=== PATIENT | male | born 1945 | race Caucasian/White ===

== ENCOUNTER 2017-04-13 15:16 | Outpatient (CLI) | payer MEDICARE ==
--- NOTE | 2017-04-14 22:05 | Ultrasound Report ---
EXAM: BILATERAL LOWER EXTREMITY ARTERIAL DOPPLER ULTRASOUNd EXAM DATE: 04/13/2017 05:28 p.m. CLINICAL HISTORY: Type 2 diabetes. COMPARISON: None. TECHNIQUE: Real-time sonographic vascular imaging was performed by the social service technician, utilizing color-f low, Doppler flow, and spectral analysis. Multiple computer help desk representative static images were saved for review . FINDINGS: Right leg: Waveforms are variable. There is no evidence of a focal velocity increase to suggest a hem odynamically significant arterial stenosis. Left leg: Waveforms are predominantly biphasic. There is no evidence of a focal velocity increase to suggest a hemodynamically significant arterial stenosis. RIGHT LEG: MEMORY CARE PROGRAM RESIDENT: PSV 156 cm/sec. Triphasic Waveform. PSFA: PSV 85 cm/sec. Triphasic waveform. MSFA: PSV 81 cm/sec. Triphasic Waveform. DSFA: PSV 83 cm/sec. Biphasic Waveform. PFA: PSV 54 cm/sec. Biphasic Waveform. POP: PSV 54 cm/sec. Biphasic Waveform. MAGNUS: PSV 53 cm/sec. Biphasic Waveform. SILO MAN: PSV 15 cm/sec. Monophasic Waveform. PER: PSV 34 cm/sec. Biphasic Waveform. DPA: PSV 98 cm/sec. Triphasic Waveform. LEFT LEG: MEMORY CARE PROGRAM RESIDENT: PSV 148 cm/sec. Triphasic Waveform. PSFA: PSV 90 cm/sec. Biphasic Waveform. MSFA: PSV 94 cm/sec. Biphasic Waveform. DSFA: PSV 71 cm/sec. Biphasic Waveform. PFA: PSV 76 cm/sec. Biphasic Waveform. POP: PSV 58 cm/sec. Biphasic Waveform. MAGNUS: PSV 59 cm/sec. Biphasic Waveform. SILO MAN: PSV 60 cm/sec. Biphasic waveform. PER: PSV 58 cm/sec. Biphasic Waveform. DPA: PSV 25 cm/sec. Biphasic Waveform. IMPRESSION: No evidence of a focal hemodynamically significant arterial stenosis in either leg. [facility] Referring Provider Line: [phone] SITE ID: [id number]
== END 2017-04-13 15:17 | disposition home or self-care (01) ==
LOC: DI 15:16
PROVIDERS: ATTEND Podiatrist
DX: E11.51 Type 2 diabetes mellitus with diabetic peripheral angiopathy without gangrene (principal)
CPT/HCPCS: 93925

== ENCOUNTER 2019-03-25 12:15 | Outpatient (CLI) | payer MEDICARE ==
[2019-03-25 12:59] LABS: ALBUMIN 3.7 g/dL (3.2-5.5); ALBUMIN/GLOBULIN RATIO 1.4 (1.0-2.2); ALKALINE PHOSPHATASE 66 IU/L (42-121); ALT ALANINE AMINOTRANSFERASE 30 IU/L (10-60); AST ASPARTATE AMINOTRANSFERASE 19 IU/L (10-42); BILIRUBIN,TOTAL 0.7 mg/dL (0.2-1.0); BUN - BLOOD UREA NITROGEN 16 mg/dL (6-20); CALCIUM 8.9 mg/dL (8.5-10.3); CARBON DIOXIDE - CO2 25 mmol/L (21-32); CHLORIDE 107 mmol/L (101-111); CHOL/HDL RATIO 2.5 (<5.0); CHOLESTEROL 116 mg/dL; CREATININE 0.8 mg/dL (0.6-1.2); GFR - MDRD 95 (>89); GLUCOSE 141 mg/dL (70-100); HDL CHOLESTEROL 47 mg/dL; LDL CHOLESTEROL,CALCULATED 50 mg/dL; LDL/HDL RATIO 1.1 (<3.6); SODIUM 141 mmol/L (135-145); TOTAL PROTEIN 6.3 g/dL (6.7-8.2); VLDL CHOLESTEROL 19 mg/dL
[2019-03-25 13:03] LABS: HB2 TOTAL 13.9 g/dL; HEMOGLOBIN A1C 0.83 g/dL; HEMOGLOBIN A1C % 7.6 % (4.6-6.2)
[2019-03-25 13:25] LABS: CREATININE,URINE 39.9 mg/dL
[2019-03-25 13:26] LABS: MICROALBUMIN,URINE < 0.2 mg/dL (0-300.0)
[2019-03-25 13:55] LABS: PSA TOTAL 0.007 ng/mL (0.000-2.000)
== END 2019-03-25 12:16 | disposition home or self-care (01) ==
LOC: LAB 12:15
PROVIDERS: ATTEND Family Medicine
DX: E11.9 Type 2 diabetes mellitus without complications (principal); Z85.46 Personal history of malignant neoplasm of prostate; E78.2 Mixed hyperlipidemia
CPT/HCPCS: 36415; 80053; 80061; 82043; 82570; 83036; 83721; 84153

== ENCOUNTER 2020-03-04 06:29 | Day surgery (SDC) | payer MEDICARE ==
[2020-03-04] MEDS ORDERED: fentaNYL 250 MCG/5 ML VIAL IVP ONE (06:30)
[2020-03-04] MEDS ORDERED: MIDAZOLAM 2 MG/2 ML VIAL IVP ONE (06:30)
[2020-03-04] MEDS ORDERED: LACTATED RINGERS 1,000 ML IV ONE (06:43)
[2020-03-04 09:07] VITALS: BP 159/76
== END 2020-03-04 06:30 | disposition home or self-care (01) ==
LOC: SDS 06:29
PROVIDERS: ATTEND Surgery
PROC: 0DBN8ZX Excision of Sigmoid Colon, Via Natural or Artificial Opening Endoscopic, Diagnostic (ICD-10-PCS; principal; 2020-03-04 07:30)
DX: Z86.010 Personal history of colon polyps (principal); K63.5 Polyp of colon; K57.30 Diverticulosis of large intestine without perforation or abscess without bleeding; Q43.8 Other specified congenital malformations of intestine; E11.9 Type 2 diabetes mellitus without complications; Z79.84 Long term (current) use of oral hypoglycemic drugs; Z87.891 Personal history of nicotine dependence
CPT/HCPCS: 45380; J7120

== ENCOUNTER 2020-03-27 14:16 | Outpatient (CLI) | payer MEDICARE ==
--- NOTE | 2020-03-27 18:32 | Ultrasound Report ---
PROCEDURE: Aorta Screening INDICATIONS: CARDIOVASCULAR DISORDERS TECHNIQUE: Real time scanning was performed of the aorta and iliac arteries, with image documentatio n. COMPARISON: None available FINDINGS: Aorta: Proximal aortic diameter measures 2.5 x 2.3 cm. Mid-aorta measures 1.8 x 1.7 cm. Distal aor tic diameter is 1.4 x 1.3 cm. Iliac arteries: Right common iliac artery measures 1.2 x 1.2 cm. Left common iliac artery measures 1.1 x 1.2 cm. IMPRESSION: Negative for aneurysm. Reviewed by: Farhat Pedro MD on 03/27/2020 5:31 PM [place] Approved by: Farhat Pedro MD on 03/27/2020 5:31 PM [place] Station ID: [id number]
== END 2020-03-27 14:17 | disposition home or self-care (01) ==
LOC: DI 14:16
PROVIDERS: ATTEND Family Medicine
DX: Z13.6 Encounter for screening for cardiovascular disorders (principal)
CPT/HCPCS: 76706

== ENCOUNTER 2021-10-17 18:32 | Outpatient (CLI) | payer MEDICARE ==
[2021-10-17 20:25] LABS: ESTIMATED AVERAGE GLUCOSE 140 mg/dL (70-100); HEMOGLOBIN A1c% 6.5 % (4.27-6.07)
== END 2021-10-17 18:33 | disposition home or self-care (01) ==
LOC: LAB.S 18:32
PROVIDERS: ATTEND Family Medicine
DX: E11.9 Type 2 diabetes mellitus without complications (principal)
CPT/HCPCS: 36415; 83036

== ENCOUNTER 2023-08-31 12:52 | Outpatient (CLI) | payer MEDICARE ==
--- NOTE | 2023-08-31 13:29 | Sleep Patient Instructions ---
Sleep Center Visit Summary - Patient Visit Information Reason for Visit: Initial consult for evaluation of sleep disordered breathing and other sleep issues. - Patient Instructions Instructions Attached: Sleep Study Additional Instructions: You will be completing a sleep study, either an in-lab polysomnography (PSG) or home sleep study (HST). You will follow-up in the sleep care office after the sleep study is completed to hear the results and talk about therapy, if needed. You will be called by our office staff to schedule this appointment, but you may contact us with any questions. - Clinic Information Contact: [facility] [address] [place] [address] [email or web address] T: [phone]
--- NOTE | 2023-08-31 13:32 | SLEEP CARE CONSULTATION ---
Information from patient questionnaire entered by Rhoda Machado. I have reviewed and concur with the information entered by Rhoda Machado. This document represents the service I personally performed and the decisions made by me, Cee Ceja ARNP. History of Present Illness Service Date and Time: 08/31/2023 1252 Reason for Visit: New patient Chief Complaint: reports: Insomnia, Unrefreshed sleep, Excessive daytime sleepiness, Frequent awakenings at night Date of Onset: 2YRS Usual bedtime: 11PM Time it takes to fall asleep: 10MIN Snores at night: Yes Observed to quit breathing while asleep: No Sleeps alone due to snoring: Yes Number of times waking at night: 2-3 Reasons for waking at night: reports: Snoring, Bathroom, Other (UNKNOWN). denies: Choking, Gasping for air Toss, Turn, or Twitch while sleeping: No Recalls having dreams: No Usually gets out of bed at: 5-6AM Feels refreshed in the morning: No Morning headache: No Sleepy or fatigued during the day: Yes Ever fallen asleep while driving: Yes (occasionl drowsy driving) Takes day naps: Yes (1 time a month for intentional naps) Dreams during day naps: No Prior sleep studies: No Additional HPI information: I had the pleasure of seeing YG MARIA today regarding the possibility of him having a sleep disorder. His current complaints are unrefreshed sleep, excessive daytime sleepiness and frequent night awakenings. She says a significant other told him that he is breathing abnormally and waking up frequently. She has not described it as snoring and has not said he stopped breathing. Sleeping on his right side helps him to sleep more quietly. She has said he "breathes loudly" when he is on his back. He has had times that he is falling asleep at odd times, like with watching TV. He has had drowsy driving and fallen asleep in car waiting for [place]. He is currently taking THC at night that seems to help him sleep better at night. He has less issues with falling asleep in afternoon or evening. He goes to sleep quickly initially but if he wakes up during the night can be up for 30 minutes to 2 hours. - Parasomnia Symptoms Ever been unable to move upon waking from sleep: No Walks in sleep: No Talks in sleep: No Ever acted out dreams in sleep: No Ever felt weak in the knees when startled or emotional: No Bothered by creepy, crawly, restless sensations in legs: No Problems with memory or concentration: No Subjective Initial [place] Sleepiness Scale score: 19 (08/29/23) Past Medical History Past Medical History: reports: Hypertension, Diabetes, Coronary Heart Disease (1 stent in 2015 right coronary), Insulin resistance, Impotence, GERD, Other (IDEOMOTOR RHINITIS) Social History The patient's occupation is a RE. Patient is and lives in . Have you smoked in the past 12 months: No Cigarettes per day (20/pack): 40 Years of smokin Quit date: 1985 Smoking Pack Years: 40.0 Alcohol use: Yes Alcohol amount and frequency: 2 GLASSES WINE 4 X WEEK Caffeine use: Yes Caffeine amount and frequency: 1 LITER COFFEE DAILY MOSTLY AM Family History Family history of sleep disordered breathing: No Allergies and Home Medications Known drug allergies: No Drug allergies reviewed: Yes Home medication list reviewed: Yes Allergy and home medication list: Allergies No Known Drug Allergies Allergy (Verified 08/29/23 11:41) Home Medications Medication Instructions Recorded Confirmed Last Taken Type Atorvastatin [Lipitor] 40 mg PO DAILY 08/10/14 03/04/20 03/03/20 History Fluticasone [Flonase] 2 sprays CLAUDINE BID 08/10/14 03/04/20 03/03/20 History Metformin HCl 1,000 mg PO BID 08/10/14 03/04/20 03/03/20 History Omeprazole 20 mg PO DAILY 08/10/14 03/04/20 03/03/20 History lisinopriL [Lisinopril] 40 mg PO DAILY 08/10/14 03/04/20 03/03/20 History Aspirin [Aspir 81] 81 mg PO DAILY 08/05/15 03/04/20 03/03/20 History Metoprolol Tartrate 50 mg PO BID 08/05/15 03/04/20 03/03/20 History Amlodipine Besylate [Norvasc] See Rx Instructions .ROUTE .COMPLEX 08/31/23 08/31/23 Unknown History Clioquinol Cream See Rx Instructions .ROUTE .COMPLEX 08/31/23 Unknown History Glipizide [Glipizide ER] See Rx Instructions .ROUTE .COMPLEX 08/31/23 08/31/23 Unknown History metroNIDAZOLE 0.75% GEL [Flagyl See Rx Instructions .ROUTE .COMPLEX 08/31/23 08/31/23 Unknown History Gel] Review of Systems Weight loss over past 5 years: 20 Cardiovascular: reports: high blood pressure, leg or foot swelling Gastrointestinal: reports: heartburn Urinary: reports: incontinence, frequency, urgency, impotence Neurological: reports: gait or balance problems Psychiatric: reports: depression Ear/Nose/Throat: reports: nasal congestion, dry mouth/throat, wisdom teeth removed. denies: tonsillectomy Immunologic: reports: sneezing Physical Exam Vital signs obtained and entered by: RHODA Valladares MA Blood Pressure: 147/63 (LEFT ARM) Cuff size: regular Heart Rate: 65 O2 Saturation: 99 Height: 5 ft 7.75 in Weight: 196 lb 12.8 oz Body Mass Index: 30.1 BMI Classification: Obese Neck circumference: 16 Mouth and throat: narrow oropharynx Soft palate: long Hard palate: normal Uvula: long (thin) Uvula visualization: 25% Mallampati Class III Tongue: normal in size Tonsils: small Neck: normal w/o lymphadenopathy or thyromegaly Heart: regular rate and rhythm Lungs: clear bilaterally Impression and Plan 1. Suspected Obstructive Sleep Apnea-Hypopnea Syndrome, as suggested by a history of loud and irregular snoring, frequent awakening during the night, unrefreshed sleep, and excessive daytime sleepiness. Narrow oropharynx and obesi ty are common predisposing factors for obstructive sleep apnea-hypopnea syndrome. I recommend proceeding to polysomnography to confirm the diagnosis and to assess severity. If the patient has significant sleep disordered breathing, a manual CPAP titration study will also be performed to find the optimal treatment pressure. I informed the patient of what the sleep studies involve and after some discussion, obtained agreement to proceed. The pathophysiology of obstructive sleep apnea-hypopnea syndrome was discussed with the patient and health risks of cardiovascular and cerebrovascular disease if not treated. Risks of drowsy driving discussed in detail and patient advised to avoid long distance driving and to rack puller at the first sign of drowsiness. Patient agreed to plan. * Schedule polysomnography. * Avoid long distance driving or driving when feeling sleepy. * Avoid alcohol, sedative and muscle relaxant around bedtime. * Attempt to lose weight. * Review instructions provided by trained office staff on how to prepare for the sleep study. * Return for follow-up after sleep study completed. Counseling Topics: Weight loss health impact Plan: PSG Visit Type: In Office Time Spent with Patient (minutes): 31 Provider Statement: I spent 100% of the Face to Face Visit with the patient with greater than 50% spent counseling the patient and coordination of care.
[2023-08-31 13:33] VITALS: BP 147/63; O2SAT 99
== END 2023-08-31 12:53 | disposition home or self-care (01) ==
LOC: SC 12:52
PROVIDERS: ATTEND Nurse Practitioner Family
DX: G47.8 Other sleep disorders (principal); R06.83 Snoring; G47.10 Hypersomnia, unspecified; E66.9 Obesity, unspecified; Z68.30 Body mass index [BMI] 30.0-30.9, adult
CPT/HCPCS: 99203; G0463; 99212

== ENCOUNTER 2023-10-19 14:48 | Outpatient (CLI) | payer MEDICARE ==
--- NOTE | 2023-10-19 15:21 | Sleep Patient Instructions ---
Sleep Center Visit Summary - Patient Visit Information Reason for Visit: Sleep study follow-up - Patient Instructions Instructions Attached: CPAP Additional Instructions: You are being started on CPAP therapy with pressure setting at 4-15 cmH2O. You will need to call the sleep care office to set up your follow up once you have your CPAP machine to check compliance and response to therapy at that time. You may call the office with any concerns about pressure feeling too low or too much for adjustment, if needed. You should contact DME supplier for any questions or concerns about mask or equipment. Please call office to schedule a follow up appointment in the sleep care office one month after obtaining new device. - Clinic Information Contact: [facility] [address] [place] [address] [email or web address] T: [phone]
--- NOTE | 2023-10-19 15:23 | SLEEP CARE CONSULTATION ---
Information from patient questionnaire entered by Rhoda Machado. I have reviewed and concur with the information entered by Rhoda Machado. This document represents the service I personally performed and the decisions made by me, Cee Ceja ARNP. History of Present Illness Service Date and Time: 10/19/2023 1448 Initial [place] Sleepiness Scale score: 19 (08/29/23) Current [place] Sleepiness Scale score: 8 (10/19/23) Additional HPI information: YG MARIA returns for follow up and results of the recently performed home sleep study. The sleep study showed mild obstructive sleep apnea with an average AHI of 10.4 and yuri oxygen saturation of 75%. I explained the pathophysiology behind obstructive sleep apnea. We then spent quite a bit of time discussing different treatment options. For mild obstructive sleep apnea, surgery and oral appliance are alternatives to nasal CPAP therapy but in moderate or severe cases, nasal CPAP is the most effective and reliable treatment. Because apnea is primarily in supine position, then positional management therapy could be effective. Methods discussed such as positioning with pillows, using a T-shirt with tennis balls in the back or commercial products that have a pillow format on back to prevent supine sleep. I reviewed the impact of weight changes on sleep apnea and strongly recommended losing weight. After some discussion, the patient opted to go with the nasal CPAP therapy. Nasal autoCPAP set at 4-15 cmH20 will be ordered with rationale explained. A manual titration study will be ordered if unable to find optimal pressure with office adjustments. I explained how CPAP machine works and what to expect when using the machine. Using CPAP every night in order to get used to it was emphasized. Patient advised to put CPAP mask on before getting into bed so as n ot to fall asleep without CPAP. To assist acclimation to CPAP use, it could also be used for a short time during day while reading or watching TV. The patient was instructed to call the CPAP supplier to discuss any mechanical problem that may occur. If the mask given is uncomfortable or is difficult to keep on through the night even with adjustment, contact the CPAP supplier as many will replace with another mask style if notified before 30 days. If snoring or perceives is not getting enough air or too much air from the machine, notify this office. Patient counseled not drink alcohol less than 4 hours before bedtime as it can increase snoring and apnea. Patient was cautioned about risks of drowsy driving until sleepiness symptoms resolve. Patient denies drowsy driving. Sleep Study - Results Type of Sleep Study: Home sleep study (COMPLETED 10/03/23) Prior sleep studies: No Polysomnography/Home Sleep Study results: Physician Impression: The quality of the study is good. The length of the study is adequate (> 240 minutes). Please also see the tabulated and graphic data. 1. Obstructive Sleep Apnea-Hypopnea (ICD-10 G47.33), mild, with an AHI of 10.4/hr and yuri SaO2 of 75%. During the study, the patient had 51 apneas (51 obstructive, 0 central, 0 mixed) and 16 hypopneas. The longest episode lasted 68.0 seconds. The respiratory events occurred almost exclusively during supine sleep (supine AHI was 25.5 and non-supine, 1.49). 2. Hypoxemia (ICD-10 R09.02), moderate, with the lowest oxygen saturation of 75 % and 12.6 minutes with SaO2 under 90%. Baseline oxygen saturation was normal (Average oxygen saturation was 94%). Allergies and Home Medications Known drug allergies: No Drug allergies reviewed: Yes Home medication list reviewed: Yes (no changes) Allergy and home medication list: Allergies No Known Drug Allergies Allergy (Verified 10/17/23 16:04) Review of Systems Review of systems same as previous: Yes (NO CHANGE) Physical Exam Vital signs obtained and entered by: RHODA Valladares MA Blood Pressure: 159/62 (LEFT ARM) Cuff size: regular Heart Rate: 46 O2 Saturation: 99 Height: 5 ft 7.75 in Weight: 194 lb 9.6 oz Body Mass Index: 29.7 BMI Classification: Overweight Impression and Plan 1. Obstructive Sleep Apnea-Hypopnea Syndrome, mild, with lowest oxygen saturation of 75%. Obviously this is the cause of the patients symptoms of unrefreshed sleep, and excessive daytime sleepiness. Positive pressure therapy could benefit hypertension, diabetes, cardiac disease (CHD), insulin resistance and gastric reflux. As mentioned above, the patient will be started on nasal autoCPAP therapy with pressure set at 4-15 cmH2O. A manual titration study will be completed if unable to find optimal treatment pressure with office adjustments. Compliance guidelines also reviewed. A copy of compliance guidelines will be given for reference at check out. Because the apnea is more severe supine, I instructed to avoid sleeping supine using pillow positioning until able to start CPAP use. 2. Hypoxemia, moderate, with a yuri oxygen saturation of 75% and 12.6 minutes spent under 90%. The baseline oxygen saturation was normal with an average oxygen saturation of 94%. 3. Overweight, unspecified. Currently patients BMI is 29.7. Obesity increases the risk of apnea, CPAP pressure requirements and overall health risks especially cardiovascular and diabetes. Thus patient is advised to lose weight. * Nasal auto CPAP therapy, pressure at 4-15 cm H2O. * Attempt to lose weight. * Avoid alcohol consumption near bedtime. * Avoid supine sleep until using CPAP. * The patient is again cautioned about driving until sleepiness completely resolves. * Return one month after CPAP obtained. I will assess response to therapy and compliance at that time. Counseling Topics: Sleeping position, Weight loss health impact Prescriptions: Auto CPAP Follow up with Sleep Care in: other (compliance followup) Visit Type: In Office Time Spent with Patient (minutes): 23 Provider Statement: I spent 100% of the Face to Face Visit with the patient with greater than 50% spent counseling the patient and coordination of care.
[2023-10-19 15:24] VITALS: BP 159/62; O2SAT 99
== END 2023-10-19 14:49 | disposition home or self-care (01) ==
LOC: SC 14:48
PROVIDERS: ATTEND Nurse Practitioner Family
DX: G47.33 Obstructive sleep apnea (adult) (pediatric) (principal); R09.02 Hypoxemia
CPT/HCPCS: 99213; G0463; 99212

== ENCOUNTER 2024-04-10 08:00 | Outpatient (CLI) | payer MEDICARE | END 2024-04-10 23:59 | disposition home or self-care (01) | LOC: LAB.S 08:00 | PROVIDERS: ATTEND Emergency Medicine | DX: L03.019 Cellulitis of unspecified finger (principal) | CPT/HCPCS: 87070; 87205 ==

== ENCOUNTER 2024-04-13 12:21 | Outpatient (CLI) | payer MEDICARE ==
--- NOTE | 2024-04-13 16:31 | XRAY Report ---
PROCEDURE: Hand 3+V RT INDICATIONS: HEMATOMA TECHNIQUE: 3 views of the hand(s) acquired. COMPARISON: None. FINDINGS: Bones: No fractures or dislocations. No suspicious bony lesions. First CMC and scattered IP degen erative narrowing. No distinctive erosions. Soft tissues: No suspicious soft tissue calcifications or masses. IMPRESSION: IP and first CMC arthritic change. No visualized acute fracture or dislocation. However, occult injury cannot be excluded. Recommend nikki rt interval imaging follow-up in 7-10 days as clinically indicated for additional evaluation. Reviewed by: Almita Arguello MD on 04/13/2024 4:29 PM PDT Approved by: Almita Arguello MD on 04/13/2024 4:29 PM PDT Station ID: [id number]
== END 2024-04-13 12:22 | disposition home or self-care (01) ==
LOC: DI 12:21
PROVIDERS: ATTEND Physician Assistant
DX: M18.11 Unilateral primary osteoarthritis of first carpometacarpal joint, right hand (principal); M19.041 Primary osteoarthritis, right hand